=== PATIENT | male | born 1975 | race African-American/Black ===

== ENCOUNTER 2023-04-18 12:10 | Emergency (ER) | payer SELFPAY ==
[~2023-04-18] VITALS: Ht 167.6 cm; Wt 63.5 kg
[2023-04-18 12:14] VITALS: BP 126/80; PULSE 104; RESP 20; TEMP 97.9; O2SAT 99
[2023-04-18] MEDS ORDERED: ALBUTEROL SULFATE/IPRATROPIU 3 ML SOL IH ONE (12:15)
[2023-04-18] MEDS ORDERED: predniSONE 20 MG TAB PO ONE (12:15)
[2023-04-18 12:33] VITALS: PULSE 84; RESP 16; O2SAT 96
[2023-04-18 13:01] LABS: BASOPHILS # (AUTO) 0.1 K/uL (0.00-0.22); BASOPHILS % (AUTO) 1.1 % (0.0-2.0); EOSINOPHILS # (AUTO) 0.2 K/uL (0-0.4); EOSINOPHILS % (AUTO) 3.5 % (0.0-4.0); HEMATOCRIT 44.4 % (36-52); LYMPHOCYTES # (AUTO) 1.5 K/uL (2.0-11.5); MEAN CORPUSCULAR HEMOGLOBIN 33 pg (27-31); MEAN CORPUSCULAR HGB CONC 34 g/dL (33-37); MONOCYTES # (AUTO) 0.6 K/uL (0.8-1.0); MONOCYTES % (AUTO) 13.1 % (1.7-9.3); NEUTROPHILS # (AUTO) 2.5 K/uL (1.8-7.7); NEUTROPHILS % (AUTO) 51.3 % (42.2-75.2); PLATELET COUNT (AUTO) 122 K/uL (140-450); RED BLOOD CELL COUNT(AUTO) 4.54 MIL/uL (4.20-6.10); WHITE BLOOD COUNT (AUTO) 4.9 K/uL (4.8-10.8)
[2023-04-18] MEDS ORDERED: ALBU0.0912 INH ×2 (13:22→13:39)
[2023-04-18] MEDS ORDERED: AZIT1PDR6 PO ×2 (13:22→13:39)
[2023-04-18] MEDS ORDERED: PRED20TA5 PO ×2 (13:22→13:39)
[2023-04-18 13:28] LABS: ALBUMIN 3.8 g/dL (3.4-5.0); ANION GAP 12.8 (8-16); CALCIUM 9.2 mg/dL (8.5-10.1); CREATININE 0.9 mg/dL (0.6-1.3); POTASSIUM 3.8 mmol/L (3.5-5.1); TOTAL BILIRUBIN 0.5 mg/dL (0.0-1.0); TOTAL PROTEIN, SERUM 7.4 g/dL (6.4-8.2)
[2023-04-18 13:40] VITALS: BP 126/80; PULSE 84; RESP 16; TEMP 97.9; O2SAT 96
== END 2023-04-18 13:40 | disposition home or self-care (01) ==
LOC: MED 12:10
DX: J45.901 Unspecified asthma with (acute) exacerbation (principal); Z79.899 Other long term (current) drug therapy
CPT/HCPCS: 36415; 71045; 80053; 83880; 85025; 93005; 94640; 99285; J7512

== ENCOUNTER 2023-07-21 12:09 | Emergency (ER) | payer SELFPAY ==
[~2023-07-21] VITALS: Ht 165.1 cm; Wt 63.5 kg
[~2023-07-21 12:09] MED LIST: ALBU0.0912 INH; AZIT1PDR6 PO; PRED20TA5 PO
[2023-07-21 12:39] VITALS: BP 107/78; PULSE 115; RESP 20; TEMP 97.1; O2SAT 99
[2023-07-21] MEDS: FAMOTIDINE 20 MG TAB PO ONE (13:16)
[2023-07-21 13:24] LABS: BASOPHILS % (AUTO) 0.5 % (0.0-2.0); EOSINOPHILS # (AUTO) 0.1 K/uL (0-0.4); EOSINOPHILS % (AUTO) 2.9 % (0.0-4.0); LYMPHOCYTES # (AUTO) 1.3 K/uL (2.0-11.5); LYMPHOCYTES % (AUTO) 29.7 % (20.5-51.1); MEAN CORPUSCULAR HEMOGLOBIN 34 pg (27-31); MEAN CORPUSCULAR HGB CONC 35 g/dL (33-37); MEAN CORPUSCULAR VOLUME 97.8 fL (80-94); MONOCYTES # (AUTO) 0.5 K/uL (0.8-1.0); NEUTROPHILS # (AUTO) 2.4 K/uL (1.8-7.7); NEUTROPHILS % (AUTO) 55.9 % (42.2-75.2); PLATELET COUNT (AUTO) 130 K/uL (140-450); RED CELL DISTRIBUTION WIDTH 14.1 % (11.6-13.7); WHITE BLOOD COUNT (AUTO) 4.3 K/uL (4.8-10.8)
[2023-07-21 13:47] LABS: ALBUMIN 3.9 g/dL (3.4-5.0); BILIRUBIN,DIRECT 0.1 mg/dL (0.0-0.3); TOTAL BILIRUBIN 0.5 mg/dL (0.0-1.0); TOTAL PROTEIN, SERUM 7.2 g/dL (6.4-8.2)
[2023-07-21 13:51] LABS: ANION GAP 10.6 (8-16); CALCIUM 8.9 mg/dL (8.5-10.1); CARBON DIOXIDE 28.4 mmol/L (21-32); CREATININE 1.1 mg/dL (0.6-1.3)
[2023-07-21] MEDS ORDERED: FAMO-92 PO (14:31)
== END 2023-07-21 14:39 | disposition home or self-care (01) ==
LOC: MED 12:09
DX: R11.2 Nausea with vomiting, unspecified (principal); R10.13 Epigastric pain; Z79.899 Other long term (current) drug therapy
CPT/HCPCS: 36415; 76705; 80048; 80076; 83690; 85025; 99284

== ENCOUNTER 2023-07-29 06:57 | Emergency (ER) | payer SELFPAY ==
[~2023-07-29] VITALS: Ht 167.6 cm; Wt 63.5 kg
[~2023-07-29 06:57] MED LIST changes: +FAMO-92 PO
[2023-07-29 07:02] VITALS: BP 121/73; PULSE 105; RESP 18; TEMP 97; O2SAT 100
[2023-07-29] MEDS ORDERED: ALBU0.0912 IH (07:14)
== END 2023-07-29 07:38 | disposition home or self-care (01) ==
LOC: MED 06:57
DX: J45.909 Unspecified asthma, uncomplicated (principal); Z76.0 Encounter for issue of repeat prescription; Z79.899 Other long term (current) drug therapy
CPT/HCPCS: 99281